=== PATIENT | female | born 1995 | race Caucasian/White ===

== ENCOUNTER → 2017-08-30 14:31 | Outpatient (CLI) | payer OTHER, MEDICAID, SELFPAY | PROVIDERS: Family Provider Obstetrics & Gynecology; PCP Family Medicine; Visit Provider Family Medicine | DX: Z34.83 Encounter for supervision of other normal pregnancy, third trimester (principal) | CPT/HCPCS: 87653 ==

== ENCOUNTER → 2017-09-02 22:27 | Outpatient (CLI) | payer OTHER, MEDICAID, SELFPAY ==
[2017-08-31 12:56] LABS: Strep Grp B PCR NEG for Grp B Strep
== END ==
PROVIDERS: Family Provider Obstetrics & Gynecology; PCP Family Medicine; Visit Provider Obstetrics & Gynecology
DX: O60.03 Preterm labor without delivery, third trimester (principal); Z3A.35 35 weeks gestation of pregnancy
CPT/HCPCS: 59025; 87653; G0378

== ENCOUNTER 2017-10-03 08:23 | Inpatient (IN) | payer OTHER, MEDICAID, SELFPAY ==
[2017-10-03] MEDS: LACTATED RINGERS 1,000 ML 125 ML IV ×2 (09:21→14:16)
[2017-10-03] MEDS: OXYTOCIN PREMIX 30 UNIT/500 ML PLAST..BAG IV (09:23)
[2017-10-03 10:23] LABS: Add Manual Diff / Slide Review NO; Basophils Percent Auto 0.4 % (0-2); Eosinophils Percent Auto 1.7 % (2-4); Hematocrit 32.9 % (36-46); Hemoglobin 11.1 g/dL (12.0-16.0); Lymphocytes Percent Auto 29.8 % (25-40); Mean Corpuscular HGB Conc 33.7 % (30-36); Mean Corpuscular Hemoglobin 27.2 PG (26-34); Mean Corpuscular Volume 80.6 fL (80-100); Monocytes Percent Auto 5.5 % (3-14); Neutrophils Absolute Auto 5800 /uL (3000-5900); Neutrophils Percent Auto 62.6 % (50-75); Platelet Count 185 X10^3/uL (150-400); Red Blood Cell Count 4.09 X10^6/uL (4.0-5.2); Red Cell Distribution Width 14.1 % (11.6-14.8); White Blood Cell Count 9.3 X10^3/uL (4.5-11.0)
[2017-10-03 10:57] VITALS: BP 110/74
--- NOTE | 2017-10-03 17:47 | P.PCNOB_ITS ---
Delivery date: 10/03/17 Intrapartal events: None Induction method: per pitocin protocol Delivery augmentation: rupture of membranes Delivery monitor: external FHT and external uterine Route of delivery: Episiotomy description: None Laceration description: Perineal - 1st Degree Delivery repair: chromic Estimated blood loss (mL): 100 Anesthesia type: Epidural Complications: None Narrative: The patient was complete and pushed x1. At 5:22 p.m., a live female delivered spontaneously over an intact perineum. The cord was double clamped and cut. The was handed off to waiting RN. Cord bloods were obtained. The placenta delivered intact with a 3 vessel cord at 5:29 p.m.. Fundus was massaged to firm. Pitocin was given in the IV fluids. A first- degree perineal laceration was repaired in the usual fashion. Apgars 9 at 1 min and 9 at 5 min. . Epidural analgesia. Mom and stable to recovery. Plan for aftercare: To routine care
[2017-10-03] MEDS: IBUPROFEN 600 MG TABLET PO (23:30)
[2017-10-04] MEDS: OXYCODONE/ACETAMINOPHEN 5/325 TABLET 2 TAB PO ×3 (03:43→12:54)
[2017-10-04] MEDS: IBUPROFEN 600 MG TABLET PO ×2 (05:54→12:55)
[2017-10-04 06:31] LABS: Hematocrit 31.9 % (36-46); Hemoglobin 10.7 g/dL (12.0-16.0)
[2017-10-04] MEDS: DOCUSATE 250 MG CAPSULE PO (08:51)
[2017-10-04] MEDS: PRENATAL VIT,CALC/IRON/FOLIC 1 TABLET 1 TAB PO (08:51)
[2017-10-04 13:59] VITALS: BP 110/74; PULSE 77; RESP 16; TEMP 36.7
[2017-10-04 14:47] VITALS: BP 110/74; PULSE 77; RESP 16; TEMP 36.7
== END 2017-10-04 15:12 | disposition home or self-care (01) | DRG 560 ==
PROVIDERS: Admitting Provider Obstetrics & Gynecology; PCP Family Medicine; Visit Provider Obstetrics & Gynecology
DX: O70.0 First degree perineal laceration during delivery (principal); Z3A.40 40 weeks gestation of pregnancy; Z37.0 Single live birth
CPT/HCPCS: 01967; 36415; 59050; 59409; 85014; 85018; 85025; 86850; 86900; 86901; G0378; G0379; J2590

== ENCOUNTER 2017-12-28 08:38 | Emergency (ER) | payer OTHER, MEDICAID, SELFPAY ==
[2017-12-28 08:42] VITALS: BP 119/76; PULSE 64; RESP 20; TEMP 37.3; O2SAT 99; BMI 24.5
--- NOTE | 2017-12-28 09:07 | ED_ITS ---
HPI - Abdominal Pain General Chief Complaint: Abdominal Pain Stated Complaint: Uncomfortable Stomach Pain Time Seen by Provider: 12/28/17 08:58 Source: patient Mode of arrival: ambulatory Limitations: no limitations History of Present Illness HPI narrative: Patient is a 22-year-old female who presents with epigastric abdominal pain ongoing for the last few days. It is progressively getting worse she sometimes feels nauseated no vomiting or fever. She has been eating okay no change with food as. She has had regular bowel movements no painful or frequent knee. She is currently breast-feeding. MD complaint: abdominal pain Related Data Previous Rx's Medication Instructions Recorded vit-iron fum-folic ac 1 cap PO QDAY #90 cap 01/31/17 [Mynatal] oxycodone-acetaminophen 2 tab PO Q4HR #30 tab 10/04/17 citalopram 10 mg tablet 10 mg PO DAILY #30 tab 11/14/17 norethindrone (contraceptive) 0.35 0.35 mg PO DAILY #28 tab 11/14/17 mg tablet omeprazole 20 mg PO DAILY #14 cap 12/28/17 Allergies Allergy/AdvReac Type Severity Reaction Status Date / Time No Known Drug Allergies Allergy Verified 10/03/17 09:29 Review of Systems Review of Systems GENERAL: Denies chills, fatigue, malaise, fever, sweats, travel HEENT: Denies sinus pain, ear pain, sore throat, difficulty swallowing, neck pain RESPIRATORY: Denies dyspnea, cough, wheezing, hemoptysis, sputum. CARDIOVASCULAR: Denies chest pain, palpitations, orthopnea, edema GASTROINTESTINAL: See HPI : Denies dysuria, frequency, incontinence, hematuria, urinary retention, flank pain. MUSCULOSKELETAL: Denies weakness, joint pain, or bony pain SKIN: No rash, no erythema, no pruritus NEUROLOGIC: Denies weakness, dizziness, headache, numbness, change in speech, confusion PSYCHIATRIC: No concerning psychosocial issues. 12 point review of systems is negative except for those stated above and HPI PFSH Medical History Athlete's foot (Chronic) Depression (Chronic) Vaginal delivery (Resolved 2013) Social History Smoking Status: Former smoker Exam Initial Vital Signs Initial Vital Signs: Vital Signs Temperature 99.2 F 12/28/17 08:42 Pulse Rate 64 12/28/17 08:42 Respiratory Rate 20 12/28/17 08:42 Blood Pressure 119/76 12/28/17 08:42 Pulse Oximetry 99 12/28/17 08:42 GENERAL: Well-appearing, well-nourished and in no acute distress. HEENT: Head atraumatic,EOMI, pupils reactive, face symmetric, CARDIOVASCULAR: Regular rate and rhythm without murmurs, rubs or gallops. RESPIRATORY: Breath sounds equal bilaterally, no wheezes rales or rhonchi. ABDOMEN: Soft, mild epigastric and right upper quadrant pain no guarding no rebound no lower abdominal pain EXTREMITIES: Normal range of motion, no clubbing or edema. Neurovascularly intact NEUROLOGICAL: Alert and oriented x4.Normal gait and speech. Cranial nerves II through XII grossly intact. SKIN: Warm, dry, no laceration, no petechiae, no rashes or lesions. Course Orders Ordered: ED Orders 12/28/17 09:07 US abdomen complete Stat 12/28/17 09:28 Complete Blood Count AUTO DIFF Stat Comprehensive Metabolic Panel Stat Lipase Stat Discontinued Medications Pantoprazole Sodium (Protonix) 40 mg IV NOW ONE Stop: 12/28/17 09:07 Last Admin: 12/28/17 09:29 Dose: 40 mg Vital Signs - 8 hr 12/28/17 08:42 12/28/17 10:06 Temperature 99.2 F Pulse Rate 64 67 Respiratory Rate 20 20 Blood Pressure 119/76 119/85 Pulse Oximetry 99 100 MDM - Abdominal Pain Medical Records Attestation: I reviewed the patient's medical records. Lab Data Attestation: I reviewed the patient's lab results. Result diagrams: 12/28/17 09:28 12/28/17 09:28 Lab Results 12/28/17 12/28/17 Range/Units 09:28 09:28 WBC 6.5 (4.5-11.0) X10^3/uL RBC 4.76 (4.0-5.2) X10^6/uL Hgb 13.7 (12.0-16.0) g/dL Hct 40.3 (36-46) % MCV 84.6 (80-100) fL MCH 28.7 (26-34) PG MCHC 33.9 (30-36) % RDW 16.2 H (11.6-14.8) % Plt Count 223 (150-400) X10^3/uL Neut % (Auto) 62.5 (50-75) % Lymph % (Auto) 31.4 (25-40) % Preston % (Auto) 4.1 (3-14) % Eos % (Auto) 1.6 L (2-4) % Baso % (Auto) 0.4 (0-2) % Neut # (Auto) 4100 (5912-5061) /uL Sodium 145 (137-145) mmol/L Potassium 4.3 (3.4-5.1) mmol/L Chloride 105 (98-107) mmol/L Carbon Dioxide 30 (22-32) mmol/L BUN 13 (7-17) mg/dL Creatinine 0.80 (0.52-1.04) mg/dL Estimated GFR > 60.0 (>60) mL/min BUN/Creatinine Ratio 16.3 (6-22) Glucose 101 H (70-100) mg/dL Calcium 9.7 (8.4-10.2) mg/dL Total Bilirubin 0.5 (0.2-1.3) mg/dL AST 18 (14-36) IU/L ALT 20 (9-52) IU/L Alkaline Phosphatase 73 (38-126) U/L Total Protein 7.4 (6.3-8.2) g/dL Albumin 4.6 (3.5-5.0) g/dL Globulin 2.8 (1.7-4.1) g/dL Albumin/Globulin Ratio 1.6 (1.0-2.8) Lipase 64 (23-300) U/L Point of care testing: Point of Care Testing Test Results Negative Urine Dip Bedside Urine Glucose Negative Bedside Urine Bilirubin - Negative Bedside Urine Ketone - Negative Urine Specific [place] 1.030 Bedside Urine Occult Blood - Negative Bedside Urine pH 6.0 Bedside Urine Protein - Negative Bedside Urine Urobilinogen - Negative Bedside Urine Nitrite - Negative Bedside Urine Leukocytes - Negative Esterase Imaging Data US - abdomen: Radiologist's impression: PROCEDURE: US ABDOMEN COMPLETE INDICATIONS: RUQ pain TECHNIQUE: Real-time scanning was performed of the abdominal and retroperitoneal organs, with image documentation. COMPARISON: [facility], CT, KIDNEY/ URETER/BLADDER, 08/08/2009, 19:28. [facility], US, ABDOMEN COMPLETE, 08/08/2009, 18:17. FINDINGS: Liver: Liver is normal in size and homogeneous in echotexture. Gallbladder: The gallbladder is within normal limits without cholelithiasis, gallbladder wall thickening or pericholecystic fluid. Biliary ducts: Intrahepatic bile ducts are non-dilated. Extrahepatic bile duct caliber measures 4 mm. Normal is 6-7 mm or less in diameter, or 10 mm or less post-cholecystectomy. Pancreas: Visualized portions of the pancreas are sonographically normal. Spleen: Spleen is normal in size and homogeneous in echotexture. Kidneys: Kidneys are normal in size and echotexture. Right kidney measures 10.2 cm long; left kidney measures 9.8 cm long. No hydronephrosis or nephrolithiasis. No solid masses. Aorta: Visualized aorta is normal in caliber at less than 3 cm. Iliacs: Proximal common iliac arteries are normal in caliber at less than 2.5 cm. IVC: Intrahepatic inferior vena cava is patent. Miscellaneous: No free abdominal fluid. IMPRESSION: No source for the patient's right upper quadrant pain is evident. There is no cholelithiasis or hydronephrosis. Dictated by: Paddy Wesley M.D. on 12/28/2017 at 9:20 Discharge Plan Departure Patient Disposition: Home Clinical Impression: Abdominal pain Discharge Date/Time: 12/28/17 10:06 Interventions: ED Discharge Assessment Last Done: 12/28/17 10:06 Instructions: Acute Abdominal Pain Activity Restrictions/Additional Instructions: *You have been diagnosed with abdominal *What to do: Blood work and ultrasound are within normal limits *Continue to take medications as directed Omeprazole 20 mg 30 min before meal as once daily [facility] *Follow up with your primary care provider in 2-3 days *Return to ER if you should have vomiting, nausea, any new, worsening or concerning symptoms Prescriptions: New omeprazole 20 mg capsule,delayed release(DR/EC) 20 mg PO DAILY Qty: 14 RF: 0 No Action vit-iron fum-folic ac [Mynatal] 1 EACH capsule 1 cap PO QDAY Qty: 90 RF: 3 citalopram [Celexa] 10 mg tablet 10 mg PO DAILY Qty: 30 RF: 6 norethindrone (contraceptive) [Ortho Micronor] 0.35 mg tablet 0.35 mg PO DAILY Qty: 28 RF: 11 oxycodone-acetaminophen 5-325 mg Tablet 2 tab PO Q4HR Qty: 30 RF: 0 Referrals: Kasia Sims MD [Primary Care Provider] -
[2017-12-28] MEDS: PANTOPRAZOLE 40 MG VIAL IV (09:29)
[2017-12-28 09:36] LABS: Add Manual Diff / Slide Review NO; Basophils Percent Auto 0.4 % (0-2); Eosinophils Percent Auto 1.6 % (2-4); Hematocrit 40.3 % (36-46); Hemoglobin 13.7 g/dL (12.0-16.0); Lymphocytes Percent Auto 31.4 % (25-40); Mean Corpuscular HGB Conc 33.9 % (30-36); Mean Corpuscular Hemoglobin 28.7 PG (26-34); Mean Corpuscular Volume 84.6 fL (80-100); Monocytes Percent Auto 4.1 % (3-14); Neutrophils Absolute Auto 4100 /uL (3000-5900); Neutrophils Percent Auto 62.5 % (50-75); Platelet Count 223 X10^3/uL (150-400); Red Blood Cell Count 4.76 X10^6/uL (4.0-5.2); Red Cell Distribution Width 16.2 % (11.6-14.8); White Blood Cell Count 6.5 X10^3/uL (4.5-11.0)
[2017-12-28 09:48] LABS: Alanine Aminotransferase 20 IU/L (9-52); Albumin 4.6 g/dL (3.5-5.0); Albumin Globulin Ratio 1.6 (1.0-2.8); Alkaline Phosphatase 73 U/L (38-126); Aspartate Aminotransferase 18 IU/L (14-36); BUN Creatinine Ratio 16.3 (6-22); Bilirubin Total 0.5 mg/dL (0.2-1.3); Blood Urea Nitrogen 13 mg/dL (7-17); Calcium 9.7 mg/dL (8.4-10.2); Carbon Dioxide 30 mmol/L (22-32); Chloride 105 mmol/L (98-107); Estimated Glomerular Filt Rate > 60.0 mL/min (>60); Globulin 2.8 g/dL (1.7-4.1); Glucose 101 mg/dL (70-100); HEMOLYSIS < 15 (0-50); Lipase 64 U/L (23-300); Potassium 4.3 mmol/L (3.4-5.1); Sodium 145 mmol/L (137-145); Total Protein 7.4 g/dL (6.3-8.2)
[2017-12-28 10:06] VITALS: BP 119/85; PULSE 67; RESP 20; O2SAT 100
== END 2017-12-28 10:06 | disposition home or self-care (01) ==
PROVIDERS: Emergency Provider Emergency Medicine; Family Provider Obstetrics & Gynecology; PCP Family Medicine
DX: R10.9 Unspecified abdominal pain (principal)
CPT/HCPCS: 36591; 76700; 80053; 81003; 81025; 83690; 85025; 96374; 99282; 99284; C9113

== ENCOUNTER 2017-12-28 23:16 | Emergency (ER) | payer OTHER, MEDICAID, SELFPAY ==
[2017-12-28 23:26] VITALS: BP 140/88; PULSE 64; RESP 18; TEMP 36.2; O2SAT 99; BMI 23.9
--- NOTE | 2017-12-29 | DI.CT.S_ITS ---
PROCEDURE: CT ABDOMEN PELVIS W CON INDICATIONS: abdominal pain, epigastric TECHNIQUE: After the administration of oral and intravenous contrast, 5 mm thick sections acquired from the diaphragms to the symphysis. 5 mm thick coronal and sagittal reformats were performed. For radiation dose reduction, the following was used: automated exposure control, adjustment of mA and/or kV according to patient size. COMPARISON: None. FINDINGS: Image quality: Excellent. ABDOMEN: Lung bases: Lung bases are clear. Heart size is normal. Solid organs: Liver is normal in size and enhancement. Gallbladder is within normal limits. Biliary system is non-dilated. Pancreas enhances normally. Spleen is normal in size and enhancement. No adrenal nodules. Kidneys are normal in size and enhancement, without hydronephrosis. Peritoneum and bowel: Stomach, small bowel, and colon loops are normal in caliber and wall thickness. No free fluid or air. The appendix is not definitely visualized, however no inflammatory changes or free fluid are noted adjacent to the cecum. Nodes and vessels: No retroperitoneal or mesenteric adenopathy. Aorta and inferior vena cava are normal in caliber. Miscellaneous: No ventral hernias. PELVIS: Genitourinary: Bladder wall thickness is normal. Miscellaneous: No inguinal hernias or adenopathy. Bones: No suspicious bony lesions. No vertebral body compression fractures. IMPRESSION: 1. No acute disease process. 2. No free fluid or free air. 3. No dilated loops of bowel. No Dictated by: Nichole Donnelly MD, PhD on 12/29/2017 at 7:56 Approved by: Nichole Donnelly MD, PhD on 12/29/2017 at 8:09
--- NOTE | 2017-12-29 00:02 | ED.ABDPAIN ---
HPI - Abdominal Pain General Chief Complaint: Abdominal Pain Stated Complaint: abdominal pain is worse Time Seen by Provider: 12/28/17 23:44 Source: patient and old records reviewed Limitations: no limitations History of Present Illness HPI narrative: this is a 22-year-old female comes to the emergency department with complaint of abdominal pain. Patient was actually seen here earlier today, she had lab work, urine , urinalysis as well as ultrasound which showed no acute findings. They suspected that patient may have GERD Um. Patient has some improvement of pain with medications in the department but pain has been increasing this evening. She states it is worse when she lays flat. It has been sort of central upper abdomen sort of wraps around towards the back. Patient states that she has been nauseated for the last several days but no vomiting. She has been having bowel movements. No new urinary issues. She does not really have back pain. She has a history of having her appendix removed. she denies any other medical issues. Related Data Previous Rx's Medication Instructions Recorded vit-iron fum-folic ac 1 cap PO QDAY #90 cap 01/31/17 [Mynatal] oxycodone-acetaminophen 2 tab PO Q4HR #30 tab 10/04/17 citalopram 10 mg tablet 10 mg PO DAILY #30 tab 11/14/17 norethindrone (contraceptive) 0.35 0.35 mg PO DAILY #28 tab 11/14/17 mg tablet omeprazole 20 mg PO DAILY #14 cap 12/28/17 sucralfate [Carafate] 1 gram PO QACHS #40 tab 12/29/17 Allergies Allergy/AdvReac Type Severity Reaction Status Date / Time No Known Drug Allergies Allergy Verified 10/03/17 09:29 Review of Systems Review of Systems All systems reviewed & are unremarkable except as noted in HPI and below Constitutional Denies fever(s) Gastrointestinal Gastrointestinal: Reports abdominal pain, Denies melena, Denies hematochezia, Denies change in bowel habits, Denies diarrhea, Reports nausea and Denies vomiting Genitourinary Denies hematuria, Denies flank pain, Denies urinary incontinence and Denies urinary urgency Musculoskeletal Denies back pain PFSH Medical History Athlete's foot (Chronic) Depression (Chronic) Vaginal delivery (Resolved 2013) Social History Smoking Status: Former smoker Exam Narrative Exam Narrative: GENERAL: Alert and oriented x three, patient is in moderate distress HEENT: Head normocephalic, atraumatic, EOMI, pupils reactive, face symmetric, moist mucous membranes NECK: Supple, full range of motion CARDIOVASCULAR: Regular rate and rhythm without murmurs, rubs or gallops. RESPIRATORY: Breath sounds equal bilaterally, no wheezes rales or rhonchi. ABDOMEN: Soft, Mild epigastric tenderness. Normoactive bowel sounds all 4 quadrants. No guarding or rebound, rigidity, no mass : No CVA tenderness EXTREMITIES: Normal range of motion, no clubbing or edema. Neurovascularly intact NEUROLOGICAL: Cranial nerves II through XII grossly intact. Moving all extremities SKIN: Warm, dry, no petechiae, no rashes or lesions. Initial Vital Signs Initial Vital Signs: Vital Signs Temperature 97.1 F L 12/28/17 23:26 Pulse Rate 64 12/28/17 23:26 Respiratory Rate 18 12/28/17 23:26 Blood Pressure 140/88 12/28/17 23:26 Pulse Oximetry 99 12/28/17 23:26 Course Orders Ordered: ED Orders 12/29/17 00:00 CT abdomen pelvis w con Stat Discontinued Medications Ketorolac Tromethamine (Toradol) 30 mg IV NOW ONE Stop: 12/29/17 00:02 Last Admin: 12/29/17 00:15 Dose: 30 mg Pantoprazole Sodium (Protonix) 40 mg IV NOW ONE Stop: 12/29/17 00:02 Last Admin: 12/29/17 00:15 Dose: 40 mg Vital Signs - 8 hr 12/28/17 23:26 12/29/17 01:33 12/29/17 01:34 Temperature 97.1 F L 97.1 F L Pulse Rate 64 69 69 Respiratory Rate 18 14 14 Blood Pressure 140/88 112/76 112/76 Pulse Oximetry 99 99 MDM - Abdominal Pain Lab Data Attestation: I reviewed the patient's lab results. patient labs including cbc, cmp and poc ua and were negative at patient's visit earlier today. Imaging Data CT scan - abdomen: Radiologist's impression: nighthawk read, no acute process noted. [facility] Narrative Medical decision making narrative: patient was here in the last 12 hr, her lab work, urine and ultrasound were reviewed which does show any clear acute changes. Patient is somewhat tender on exam and has had increasing abdominal pain. Discussed CT versus watchful waiting and patient elects for CT even the risks versus benefits were discussed. She had some improvement with Protonix on her last visit this was ordered along with Toradol. CT of abdomen pelvis was ordered and showed no acute findings. Patient was asleep upon return to room and after awakening we discussed lab findings and plan for d/c home. Continue ompeprazole and added carafate. Discharge Plan Departure Patient Disposition: Home Clinical Impression: Abdominal pain Discharge Date/Time: 12/29/17 01:37 Interventions: ED Discharge Assessment Last Done: 12/29/17 01:33 Instructions: DI for Abdominal Pain-Adult Activity Restrictions/Additional Instructions: Follow-up in the next 2-3 days for recheck. Take medications as prescribed. Continue omeprazole. Take carafate prior to meals and prior to sleep (4x daily) return to the emergency department for fevers greater than 100.4, persistent vomiting, black or bloody stools, syncope or passing out or any other new or concerning symptoms. Prescriptions: New sucralfate [Carafate] 1 gram tablet 1 gram PO QACHS Qty: 40 RF: 0 No Action vit-iron fum-folic ac [Mynatal] 1 EACH capsule 1 cap PO QDAY Qty: 90 RF: 3 citalopram [Celexa] 10 mg tablet 10 mg PO DAILY Qty: 30 RF: 6 norethindrone (contraceptive) [Ortho Micronor] 0.35 mg tablet 0.35 mg PO DAILY Qty: 28 RF: 11 oxycodone-acetaminophen 5-325 mg Tablet 2 tab PO Q4HR Qty: 30 RF: 0 omeprazole 20 mg capsule,delayed release(DR/EC) 20 mg PO DAILY Qty: 14 RF: 0
[2017-12-29] MEDS: KETOROLAC 60 MG/2 ML VIAL 30 MG IV (00:15)
[2017-12-29] MEDS: PANTOPRAZOLE 40 MG VIAL IV (00:15)
[2017-12-29 01:33] VITALS: BP 112/76; PULSE 69; RESP 14
[2017-12-29 01:34] VITALS: BP 112/76; PULSE 69; RESP 14; TEMP 36.2; O2SAT 99; BMI 23.9
== END 2017-12-29 01:37 | disposition home or self-care (01) ==
PROVIDERS: Emergency Provider Emergency Medicine; Family Provider Obstetrics & Gynecology; PCP Family Medicine
DX: R10.9 Unspecified abdominal pain (principal)
CPT/HCPCS: 36591; 74177; 76700; 80053; 81003; 81025; 83690; 85025; 96374; 96375; 99282; 99284; 99285; C9113; J1885; Q9967

== ENCOUNTER 2018-06-28 10:20 | Emergency (ER) | payer OTHER, MEDICAID, SELFPAY ==
[2018-06-28 10:23] VITALS: BP 82/53; PULSE 45; RESP 16; TEMP 36.1; O2SAT 100; BMI 22.8
--- NOTE | 2018-06-28 10:39 | DI.CT.S_ITS ---
PROCEDURE: CT CERVICAL SPINE WO CON INDICATIONS: fall off dorina onto face TECHNIQUE: Noncontrast 3 mm thick sections acquired from the skull base to the T4 level. Sagittal and coronal reformats were then constructed. For radiation dose reduction, the following was used: automated exposure control, adjustment of mA and/or kV according to patient size. COMPARISON: None. FINDINGS: Image quality: Excellent. Bones: No fractures or dislocations. There is loss of cervical lordosis with mild kyphotic curvature in cervical spine. There is minimal anterolisthesis of C2 on C3 and C4 on C5. Visualized superior ribs are intact. Soft tissues: Prevertebral soft tissues are normal in thickness. No paravertebral hematomas. No apical pneumothoraces. IMPRESSION: 1. No cervical spine fractures. 2. Loss of normal cervical curvature with mild kyphosis and minimal anterolisthesis of C2 on C3 and C6-4 C5. The findings may be related to positioning, muscle spasm or ligamentous injuries. If clinical symptoms persist or clinical suspicion for pathology is high, MRI is suggested for further evaluation. Dictated by: Juvencio Jewell M.D. on 06/28/2018 at 12:17 Approved by: Juvencio Jewell M.D. on 06/28/2018 at 12:28
--- NOTE | 2018-06-28 10:39 | DI.CT.S_ITS ---
PROCEDURE: CT FACIAL BONES WO CON INDICATIONS: fall off dorina onto face TECHNIQUE: Noncontrast 2.5 mm thick axial images acquired from the mandible through the frontal sinuses, with coronal and sagittal reformatting. For radiation dose reduction, the following was used: automated exposure control, adjustment of mA and/or kV according to patient size. COMPARISON: None. FINDINGS: Image quality: Excellent. Bones and teeth: Orbital ch are intact. Sinus ch show no fracture or deformity. Nasal bones and septum are intact. Visualized portions of the mandible demonstrate no fractures or subluxation. Zygomatic arches are intact. Pterygoid plates are intact. Visualized portions of the skull base and auditory canals are intact. Sinuses: Paranasal sinuses are aerated, without fluid levels, mucosal thickening, or mucoceles. Mastoid air cells are aerated. Soft tissues: Mild prefrontal and right preorbital soft tissue swelling. No masses, or fluid collections. No enlarged lymph nodes. No soft tissue lacerations or debris. Vascular: Visualized vascular structures appear normal in the absence of contrast. Bony vascular foramina and canals are intact. IMPRESSION: No facial bone fractures. Dictated by: Juvencio Jewell M.D. on 06/28/2018 at 12:28 Approved by: Juvencio Jewell M.D. on 06/28/2018 at 12:33
--- NOTE | 2018-06-28 10:39 | DI.CT.S_ITS ---
PROCEDURE: CT HEAD/BRAIN WO CON INDICATIONS: fall off dorina onto face TECHNIQUE: Noncontrast 4.5 mm thick angled axial sections acquired from the foramen magnum to the vertex, with coronal and sagittal reformats. For radiation dose reduction, the following was used: automated exposure control, adjustment of mA and/or kV according to patient size. COMPARISON: [facility], CT, CT FACIAL BONES WO CON, 06/28/2018, 11:49. FINDINGS: Image quality: Excellent. CSF spaces: Basal cisterns are patent. No extra-axial fluid collections. Ventricles are normal in size and shape. Brain: No midline shift. No intracranial masses or hemorrhage. Burciaga-white matter interface is normal. Skull and face: Calvarium and visualized facial bones are intact, without suspicious lesions. Sinuses: Visualized sinuses and mastoids are clear. IMPRESSION: Normal head CT. Dictated by: Juvencio Jewell M.D. on 06/28/2018 at 12:14 Approved by: Juvencio Jewell M.D. on 06/28/2018 at 12:17
--- NOTE | 2018-06-28 11:05 | ED.FALL ---
HPI - Fall General Chief Complaint: Trauma Stated Complaint: fell on rock on face Time Seen by Provider: 06/28/18 10:31 Source: patient Mode of arrival: ambulatory Limitations: no limitations History of Present Illness HPI Narrative: Patient is a young 23-year-old female who presents after a fall. She was at [facility] when she fell down some rocks. Unclear how far she fell she clearly hit her face she has some scratches and lacerations. She has no neck pain no numbness or tingling. She has no headache no loss of consciousness. He denies any visual problems no nausea. complaint: fall Onset (ago): minute(s) Related Data Home Medications Medication Instructions Recorded Confirmed No Known Home Medications 06/28/18 06/28/18 Allergies Allergy/AdvReac Type Severity Reaction Status Date / Time hydrocodone Allergy Verified 06/28/18 10:45 Review of Systems Review of Systems ROS Unobtainable: All systems reviewed & are unremarkable except as noted in HPI and below Constitutional Denies chills, Denies fever(s), Denies lethargy and Denies weakness Eyes Denies blurry vision and Denies diplopia Cardiovascular Denies chest pain, Denies irregular heart rhythm, Denies lightheadedness, Denies palpitations, Denies dyspnea, Denies dyspnea on exertion and Denies orthopnea Respiratory Denies cough, Denies dyspnea, Denies dyspnea on exertion and Denies wheezing Gastrointestinal Gastrointestinal: Denies abdominal pain, Denies change in bowel habits, Denies diarrhea, Denies nausea and Denies vomiting Genitourinary Denies hematuria, Denies flank pain, Denies urinary incontinence and Denies urinary urgency Musculoskeletal Denies back pain, Denies muscle weakness, Denies numbness and Denies tingling Integumentary/Breasts Reports as per HPI Neurologic Denies numbness, Denies tingling and Denies weakness Endocrine Denies palpitations Allergic/Immunologic Denies wheezing Exam Initial Vital Signs Initial Vital Signs: Vital Signs Temperature 96.9 F L 06/28/18 10:23 Pulse Rate 45 L 06/28/18 10:23 Respiratory Rate 16 06/28/18 10:23 Blood Pressure 82/53 L 06/28/18 10:23 Pulse Oximetry 100 06/28/18 10:23 GENERAL: [Well-appearing, well-nourished] and in [no acute] distress. HEENT: Head atraumatic,EOMI, pupils reactive, right eyelid laceration to not have cm a good skin approximation. The patient also has lower lip laceration. Teeth are not loose good line up, NECK: No vertebral tenderness able to flex and extend and rotate. C-collar was placed in the ED based on mechanism CARDIOVASCULAR: Regular rate and rhythm without murmurs, rubs or gallops. RESPIRATORY: Breath sounds equal bilaterally, no wheezes rales or rhonchi. ABDOMEN: Soft, nontender. Normoactive bowel sounds all 4 quadrants. No guarding or rebound. EXTREMITIES: Normal range of motion, no clubbing or edema. Neurovascularly intact NEUROLOGICAL: Alert and oriented x4.Normal gait and speech. Cranial nerves II through XII grossly intact. Reticle Printer strength bilaterally SKIN: Warm, dry, no laceration, no petechiae, no rashes or lesions. [facility] Medical History Athlete's foot (Chronic) Depression (Chronic) Twin delivered vaginally (Resolved 03/2016) Vaginal delivery (Resolved 11/30/13) Vaginal delivery (Resolved 10/03/17) Surgical History History of dilation and curettage (Resolved 06/24/16) History of laparoscopic appendectomy (Resolved 08/08/09) Social History Smoking Status: Former smoker Social History Smoking Status: Former smoker Course Orders Ordered: ED Orders 06/28/18 10:39 CT cervical spine wo con Stat CT facial bones wo con Stat CT head/brain wo con Stat Vital Signs - 8 hr 06/28/18 10:23 Temperature 96.9 F L Pulse Rate 45 L Respiratory Rate 16 Blood Pressure 82/53 L Pulse Oximetry 100 MDM - Fall Lab Data Point of Care Testing Test Results Negative Urine Dip Bedside Urine Glucose Negative Bedside Urine Bilirubin - Negative Bedside Urine Ketone - Negative Urine Specific [place] 1.025 Bedside Urine Occult Blood - Negative Bedside Urine pH 6.0 Bedside Urine Protein +/- 15 Bedside Urine Urobilinogen - Negative Bedside Urine Nitrite - Negative Bedside Urine Leukocytes - Negative Esterase Imaging Data CT scan - head: Radiologist's impression: PROCEDURE: CT HEAD/BRAIN WO CON INDICATIONS: fall off dorina onto face TECHNIQUE: Noncontrast 4.5 mm thick angled axial sections acquired from the foramen magnum to the vertex, with coronal and sagittal reformats. For radiation dose reduction, the following was used: automated exposure control, adjustment of mA and/or kV according to patient size. COMPARISON: [facility], CT, CT FACIAL BONES WO CON, 06/28/2018, 11:49. FINDINGS: Image quality: Excellent. CSF spaces: Basal cisterns are patent. No extra-axial fluid collections. Ventricles are normal in size and shape. Brain: No midline shift. No intracranial masses or hemorrhage. [place]-white matter interface is normal. Skull and face: Calvarium and visualized facial bones are intact, without suspicious lesions. Sinuses: Visualized sinuses and mastoids are clear. IMPRESSION: Normal head CT. Dictated by: Juvencio Jewell M.D. on 06/28/2018 at 12:14 ct face: Radiologist's impression: ROCEDURE: CT FACIAL BONES WO CON INDICATIONS: fall off dorina onto face TECHNIQUE: Noncontrast 2.5 mm thick axial images acquired from the mandible through the frontal sinuses, with coronal and sagittal reformatting. For radiation dose reduction, the following was used: automated exposure control, adjustment of mA and/or kV according to patient size. COMPARISON: None. FINDINGS: Image quality: Excellent. Bones and teeth: Orbital ch are intact. Sinus ch show no fracture or deformity. Nasal bones and septum are intact. Visualized portions of the mandible demonstrate no fractures or subluxation. Zygomatic arches are intact. Pterygoid plates are intact. Visualized portions of the skull base and auditory canals are intact. Sinuses: Paranasal sinuses are aerated, without fluid levels, mucosal thickening, or mucoceles. Mastoid air cells are aerated. Soft tissues: Mild prefrontal and right preorbital soft tissue swelling. No masses, or fluid collections. No enlarged lymph nodes. No soft tissue lacerations or debris. Vascular: Visualized vascular structures appear normal in the absence of contrast. Bony vascular foramina and canals are intact. IMPRESSION: No facial bone fractures. Dictated by: Juvencio Jewell M.D. on 06/28/2018 at 12:28 ct cervical: Radiologist's impression: PROCEDURE: CT CERVICAL SPINE WO CON INDICATIONS: fall off dorina onto face TECHNIQUE: Noncontrast 3 mm thick sections acquired from the skull base to the T4 level. Sagittal and coronal reformats were then constructed. For radiation dose reduction, the following was used: automated exposure control, adjustment of mA and/or kV according to patient size. COMPARISON: None. FINDINGS: Image quality: Excellent. Bones: No fractures or dislocations. There is loss of cervical lordosis with mild kyphotic curvature in cervical spine. There is minimal anterolisthesis of C2 on C3 and C4 on C5. Visualized superior ribs are intact. Soft tissues: Prevertebral soft tissues are normal in thickness. No paravertebral hematomas. No apical pneumothoraces. IMPRESSION: 1. No cervical spine fractures. 2. Loss of normal cervical curvature with mild kyphosis and minimal anterolisthesis of C2 on C3 and C6-4 C5. The findings may be related to positioning, muscle spasm or ligamentous injuries. If clinical symptoms persist or clinical suspicion for pathology is high, MRI is suggested for further evaluation. Dictated by: Juvencio Jewell M.D. on 06/28/2018 at 12:17 MDM Narrative Medical decision making narrative: Based on patient's face she clearly fell face forward she has multiple lacerations. Unclear how far she fell off dorina. Patient will get CT of the neck however she walked in and has no clinical symptoms however facial may be distracted. Patient absolutely refused to have any sort of suture. She was agreeable to glue for her right eye. I think the lip will heal okay on its own without any sort of intervention. I discussed all findings with the patient , Education has been performed regarding treatment plan, diagnosis, warning signs and symptoms and all concerns have been addressed. Verbally agree with and understood all of the above. Discharge Plan Departure Patient Disposition: Home Clinical Impression: Eyelid laceration, right Qualifiers: Encounter type: initial encounter Qualified Code(s): S01.111A - Laceration without foreign body of right eyelid and periocular area, initial encounter Laceration of lower lip Qualifiers: Encounter type: initial encounter Qualified Code(s): S01.511A - Laceration without foreign body of lip, initial encounter Discharge Date/Time: 06/28/18 13:13 Interventions: ED Discharge Assessment Last Done: 06/28/18 13:10 Instructions: DI for Laceration Repair With Dermabond Activity Restrictions/Additional Instructions: *You have been diagnosed with right eye laceration, lower lip laceration *What to do: glueshould come off in about 1 week. Apply neosporitn twice daily once glue has come off. Expect to have black eye tomorrow *Continue to take medications as directed *Follow up with your primary care provider in 2-3 days *Return to ER if you should have redness, pus, swelling, or any new, worsening or concerning symptoms Prescriptions: No Action No Known Home Medications RF: 0 Referrals: Kasia Sims MD [Primary Care Provider] -
[2018-06-28 11:45] VITALS: BP 99/60; PULSE 54; RESP 17; O2SAT 100
[2018-06-28 13:10] VITALS: BP 119/83; PULSE 66; RESP 18; O2SAT 100
== END 2018-06-28 13:13 | disposition home or self-care (01) ==
PROVIDERS: Emergency Provider Emergency Medicine; Family Provider Obstetrics & Gynecology; PCP Family Medicine
DX: S01.111A Laceration without foreign body of right eyelid and periocular area, initial encounter (principal); S01.511A Laceration without foreign body of lip, initial encounter
CPT/HCPCS: 70450; 70486; 72125; 81003; 81025; 99282; 99284

== ENCOUNTER 2020-07-31 17:17 | Emergency (ER) | payer OTHER, MEDICAID, SELFPAY ==
[2020-07-31 17:23] VITALS: BP 117/77; PULSE 81; RESP 12; TEMP 36.1; O2SAT 98; BMI 25.7
--- NOTE | 2020-07-31 17:36 | PC.NURSE ---
patient states that she had poor dental care during her pregnancies and the babies took their nourishment from her teeth. She took 1100mg ibuprophen at 0800 today. Then she took another 800mg around 1600 today. This did not help.
--- NOTE | 2020-07-31 17:55 | ED_ITS ---
HPI - Dental/Oral General Chief complaint: Dental/Oral Stated complaint: severe tooth pain Time Seen by Provider: 07/31/20 17:44 Source: patient Mode of arrival: Ambulatory History of Present Illness HPI Narrative: 25-year-old otherwise healthy young woman presents with increasing dental pain tooth number 31. The posterior buccal cusp but that has broken off there was of large amalgam filling in it and there is increasing fullness in the gums and some swelling under the angle of the jaw. She is having no systemic fevers but has notices the pain is gotten to the point that she is having difficulty eating and sleeping. She has been using ibuprofen and she does have the ability to walk into the [facility] dental clinic on Monday and is planning to do so. Related Data Home Medications Medication Instructions Recorded Confirmed copper 380 square mm intrauterine INTRAUTERINE each 09/18/18 09/18/18 device Previous Rx's Medication Instructions Recorded oxycodone-acetaminophen 1 tab PO Q6H PRN #14 tab 07/31/20 penicillin V potassium 500 mg PO TID #21 tab 07/31/20 Allergies Allergy/AdvReac Type Severity Reaction Status Date / Time hydrocodone Allergy Rash Verified 07/31/20 17:26 Review of Systems Review of Systems Narrative: Remainder of complete review of systems is otherwise unremarkable except for that included in the HPI. Patient History Medical History Athlete's foot Depression Twin delivered vaginally (03/2016) Vaginal delivery (11/30/13) Vaginal delivery (10/03/17) Surgical History History of dilation and curettage (06/24/16) History of laparoscopic appendectomy (08/08/09) Social History Smoking Status: Former smoker Smoking Status: Former smoker alcohol intake frequency: a few times a month Substance Use Type: marijuana Exam Narrative Exam Narrative: General: Alert appropriate in no acute distress HEENT: Fullness over the angle of the jaw with cervical adenopathy under the angle of the jaw on the right side. Posterior buccal cusp tooth number 31 is fractured. There is no obvious pointing abscess Respiratory: Able to speak in full sentences, no obvious respiratory distress Skin: No obvious rashes, warm and dry Neurologic: Grossly intact no obvious asymmetries or abnormalities Psych: appropriate insight and affect, cooperative Initial Vital Signs Initial Vital Signs: Vital Signs Temperature 97 F L 07/31/20 17:23 Pulse Rate 81 07/31/20 17:23 Respiratory Rate 12 07/31/20 17:23 Blood Pressure 117/77 07/31/20 17:23 Pulse Oximetry 98 07/31/20 17:23 Course Vital Signs Vital signs: Vital Signs - 8 hr 07/31/20 17:23 Temperature 97 F L Pulse Rate 81 Respiratory Rate 12 Blood Pressure 117/77 Pulse Oximetry 98 MDM - Dental/Oral Medical Records Attestation: I reviewed the patient's medical records. Lab Data Attestation: I reviewed the patient's lab results. [facility] Narrative Medical decision making narrative: Fractured tooth number 31, developing infection without pointing abscess. No evidence of sepsis. She is started on penicillin and given of small prescription of prescription along with instructions to use ibuprofen as needed. She will follow-up with the walk-in dental clinic on Monday. She is safe for home discharge Discharge Plan Departure Patient Disposition: Home Clinical Impression: Toothache Instructions: DI for Dental Pain Activity Restrictions/Additional Instructions: Thank you for coming in today Your right 2nd molar is broken and does look like your developing an infection around it. Please start the penicillin and complete the prescription Using 400 mg of ibuprofen (2 [id number] pills) and 1 Tylenol every 6 hours can be very helpful in controlling pain. For severe pain you can use to ibuprofen and 1 Percocet. Make sure that you follow-up with the walk-in dental clinic on Monday. I hope you heal quickly Prescriptions: New penicillin V potassium 500 mg tablet 500 mg PO TID Qty: 21 RF: 0 oxycodone-acetaminophen 5-325 mg tablet 1 tab PO Q6H PRN (Reason: pain) Qty: 14 RF: 0 No Action ParaGard T 380A 380 square mm intrauterine device intrauterine RF: 0 Referrals: Kasia Sims MD [Primary Care Provider] -
== END 2020-07-31 18:00 | disposition home or self-care (01) ==
PROVIDERS: Emergency Provider Emergency Medicine; Family Provider Obstetrics & Gynecology; PCP Family Medicine
DX: K08.89 Other specified disorders of teeth and supporting structures (principal)
CPT/HCPCS: 99281

== ENCOUNTER → 2021-06-07 15:42 | Outpatient (CLI) | payer OTHER, MEDICAID, SELFPAY | PROVIDERS: Family Provider Obstetrics & Gynecology; PCP Family Medicine; Visit Provider Nurse Practitioner Family | DX: J02.9 Acute pharyngitis, unspecified (principal) | CPT/HCPCS: 87070; 87880 ==